=== PATIENT | male | born 1970 | race African-American/Black ===

== ENCOUNTER → 2017-11-10 | Outpatient (CLI) | payer OTHER ==
--- NOTE | 2017-11-10 15:26 | US ---
EXAMINATION TYPE: US venous doppler duplex LE LT;LOWER EXTREMITY VENOUS INSUFFICIENCY DATE OF EXAM: 11/10/2017 2:13 PM COMPARISON: US CLINICAL HISTORY: M79.605 PAIN IN LT LEG; wound care center patient for left plantar surface recurrin g ulcer; diabetic SIDE PERFORMED: Left TECHNIQUE: The lower extremity deep venous system is examined utilizing real time linear array sonog freddy with graded compression, doppler sonography and color-flow sonography. SIDE PERFORMED: left 1) Color flow is present and patency is documented in the following vessels. No DVT or SVT is noted . Common Femoral Vein Deep Femoral Vein Femoral Vein Popliteal Vein Proximal Calf Veins Greater Saph Vein Upper Small Saph Vein 2) There is venous reflux noted at the following venous levels: Left CFV, Right CFV 3) Incompetent perforators are not seen at any levels: IMPRESSION: No ultrasound evidence for acute DVT left lower extremity. Venous reflux bilateral common femoral vein level in the bilateral groins.
--- NOTE | 2017-11-16 13:33 | P.ARTDOP ---
Arterial Doppler LOWER EXTREMITY ARTERIAL DOPPLER: DATE OF SERVICE: 11/10/2017 Reason for study: Left leg pain. Doppler waveforms: Multiphasic bilaterally throughout. Pulse volume recording: []. Pressure gradients: None. Ankle-brachial indices: Greater than 1 bilaterally. Toe pressures: 117 on the right, 123 on the left Impression: Normal study.
== END | disposition home or self-care (01) ==
LOC: RADUSWWP 13:44
PROVIDERS: ATTEND Podiatrist
DX: I87.8 Other specified disorders of veins (principal); M79.605 Pain in left leg; M86.8X8 Other osteomyelitis, other site; E13.621 Other specified diabetes mellitus with foot ulcer; M79.604 Pain in right leg
CPT/HCPCS: 93922

== ENCOUNTER → 2017-11-24 | Outpatient (CLI) | payer OTHER | END | disposition home or self-care (01) | LOC: RADNMMAIN 06:56 | PROVIDERS: ATTEND Podiatrist | DX: Z53.9 Procedure and treatment not carried out, unspecified reason (principal) ==

== ENCOUNTER → 2017-11-29 | Outpatient (CLI) | payer OTHER ==
--- NOTE | 2017-11-30 15:16 | NM ---
EXAMINATION TYPE: NM WBC limited DATE OF EXAM: 11/30/2017 COMPARISON: Radiograph 11/04/2017 HISTORY: 47-year-old male with left foot plantar aspect nonhealing wound of the fifth digit for 2 mon ths TECHNIQUE: Following administration of 15.1 mCi Tc99m Ceretec. Images obtained 4 hour(s) and 24 juventino r(s) post injection. FINDINGS: Tiny focal area of activity along the plantar ball of the left foot on the side lateral view of the l eft foot. This is located superficially along the skin. No additional abnormal activity is seen IMPRESSION: Tiny focal area of superficial activity along the lateral plantar ball of the left foot. This may rel ate to the patient's known wound with possible localized soft tissue infection. No abnormal activity seen in the deeper tissues to suggest osteomyelitis.
== END | disposition home or self-care (01) ==
LOC: RADNMMAIN 07:03
PROVIDERS: ATTEND Podiatrist
DX: M86.8X8 Other osteomyelitis, other site (principal)
CPT/HCPCS: 78805; A9569

== ENCOUNTER → 2018-01-25 | Outpatient (CLI) | payer OTHER ==
[2018-01-25 10:30] LABS: Basophils % (A) 0 %; Eosinophils # (A) 0.2 k/uL (0-0.7); Eosinophils % (A) 1 %; HCT 43.2 % (39.0-53.0); HGB 13.4 gm/dL (13.0-17.5); Hypochromasia Slight; Lymphocytes # (A) 1.2 k/uL (1.0-4.8); Lymphocytes % (A) 9 %; MCH 28.4 pg (25.0-35.0); MCV 91.6 fL (80.0-100.0); Mean Platelet Volume 8.1; Monocytes # (A) 0.7 k/uL (0-1.0); Monocytes % (A) 5 %; Neutrophils # (A) 10.4 k/uL (1.3-7.7); Neutrophils % (A) 83 %; Platelet Count 205 k/uL (150-450); RBC 4.72 m/uL (4.30-5.90); RDW 12.6 % (11.5-15.5); WBC 12.6 k/uL (3.8-10.6)
[2018-01-25 10:31] LABS: ALT 30 U/L (21-72); AST 26 U/L (17-59); Alkaline Phosphatase 120 U/L (38-126); Anion Gap 13 mmol/L; Blood Urea Nitrogen 16 mg/dL (9-20); Calcium 9.7 mg/dL (8.4-10.2); Carbon Dioxide 22 mmol/L (22-30); Chloride 103 mmol/L (98-107); Glucose 242 mg/dL (74-99); Potassium 4.5 mmol/L (3.5-5.1); Sodium 138 mmol/L (137-145); Total Bilirubin 0.9 mg/dL (0.2-1.3); Total Protein 7.5 g/dL (6.3-8.2)
--- NOTE | 2018-01-25 10:51 | XR ---
EXAMINATION TYPE: XR foot complete LT DATE OF EXAM: 01/25/2018 COMPARISON: NONE HISTORY: 47-year-old male evaluate for osteomyelitis, nonhealing wound along the bottom of the left f oot near the fifth digit TECHNIQUE: 3 views FINDINGS: Hallux valgus deformity with bunion and mild first MTP joint degenerative change. There is additional soft tissue swelling along the lateral forefoot. Difficult to exclude subtle cortical erosion along the lateral plantar aspect of the fifth metatarsal head and proximal phalangeal base. Incidental bipa rtite tibial sesamoid. Suggestion of a 4 mm linear retained metallic debris along the ball of the silver t on the lateral view along the superficial tissues. IMPRESSION: The oblique view shows possible subtle cortical erosions about the lateral plantar aspect of the fift h MTP joint. Osteomyelitis difficult to exclude on the basis of this exam. Consider MRI or three-phas e bone scan as clinically indicated.
[2018-01-25 17:13] LABS: Hemoglobin A1C 9.2 % (4.0-6.0)
== END | disposition home or self-care (01) ==
LOC: RADXRMAIN 09:31
PROVIDERS: ATTEND Podiatrist
DX: M86.8X7 Other osteomyelitis, ankle and foot (principal); E13.621 Other specified diabetes mellitus with foot ulcer
CPT/HCPCS: 36415; 80053; 83036; 84134; 85025

== ENCOUNTER → 2018-02-01 | Outpatient (CLI) | payer OTHER ==
--- NOTE | 2018-02-01 16:06 | NM ---
EXAMINATION TYPE: NM bone 3 phase DATE OF EXAM: 02/01/2018 COMPARISON: 01/25/2018 left foot HISTORY: Osteomyelitis Triple phase bone scintigraphy was performed following the injection of25.0 mCi Tc 99m MDP. Immediat e images and 5.75 hours post injection images acquired. FINDINGS: Blood flow: There is increased blood flow to the left lower extremity compared to the right. This may be more focal at the distal fifth digit. Possible focal radiotracer on slightly more delayed blood f low images is in the first metatarsophalangeal joint space region. Blood pool: There is increased radiotracer accumulation on blood pool images in the region of the fir st metatarsophalangeal joint space and in the distal fifth digit region of the left foot. Static images: There is focal radiotracer accumulation at the first metatarsal phalangeal joint space . Distal fifth metatarsal or proximal phalanx fifth digit of the left foot is also present. IMPRESSION: Increased radiotracer 3 phases of bone scan at the region of the first metatarsophalangeal joint spac e and at the fifth proximal phalanx region. These areas when compared to the plain films correspond t o suspicious areas. Findings can be compatible with acute osteomyelitis these 2 regions.
== END | disposition home or self-care (01) ==
LOC: RADNMMAIN 07:33
PROVIDERS: ATTEND Podiatrist
DX: M86.9 Osteomyelitis, unspecified (principal)
CPT/HCPCS: 78315; A9503

== ENCOUNTER → 2018-02-06 | Day surgery (SDC) | payer OTHER ==
[2018-02-03 14:47] VITALS: BMI 34.2
[~2018-02-06] MED LIST: LIDOCAINE 2% INJ 20 MG/ML SQ ONE; cefTRIAXone IN SWFI 2,000 MG/20 ML SYRINGE IVP SCH
[2018-02-06 11:09] VITALS: PULSE 74; RESP 18
[2018-02-06 11:19] LABS: Glucose,Whole Blood 338 mg/dL (75-99)
[2018-02-06 11:30] LABS: Blood Urea Nitrogen 14 mg/dL (9-20)
--- NOTE | 2018-02-06 11:53 | IR ---
PICC LINE PLACEMENT: HISTORY: Infection requiring long-term antibiotic therapy PROCEDURE: Ultrasound and fluoroscopic guidance of PICC line placement. COMPLICATIONS: None ANESTHESIA: 1. 1% Lidocaine locally. FINDINGS/TECHNIQUE: The procedure was explained to the patient. The risks, complications, benefits and alternatives were discussed and any questions were answered. Informed consent was obtained. The patient was placed supine on the fluoroscopic table and prepped and draped in the usual sterile fas ion. Utilizing a 21 gauge needle and sonographic and fluoroscopic guidance, access in the vein was achieved and there is placement of a 0.018 guidewire. The vein is patent. A 4-F sheath was placed o devon the guidewire. The guidewire and dilator were removed and a 4-F. PICC line was placed through th e sheath with the tip at the level of the SVC. The sheath was removed, the catheter was flushed and sutured into position. The patient was stable throughout the procedure and remained stable upon disc harge from the Department of Radiology. The vein puncture was patent under ultrasound. A light scale image was obtained to document patency of the vein punctured. All elements of the maximal barrier technique were utilized. FLUOROSCOPY TIME: 0.1 minute, one image submitted. IMPRESSION: Successful PICC line placement under ultrasound and fluoroscopic guidance.
[2018-02-06 12:31] VITALS: BP 145/82; TEMP 98
== END ==
LOC: CATHCVL 10:31
PROVIDERS: ATTEND Radiology Diagnostic Radiology
DX: E11.621 Type 2 diabetes mellitus with foot ulcer (principal)
CPT/HCPCS: 36569; 77001; 82565; 84520; C1751; C1769; J2001; J0696; 76937

== ENCOUNTER → 2018-04-17 | Outpatient (CLI) | payer OTHER ==
[2018-04-17 14:29] LABS: Anion Gap 10 mmol/L; Blood Urea Nitrogen 14 mg/dL (9-20); Calcium 10.5 mg/dL (8.4-10.2); Carbon Dioxide 29 mmol/L (22-30); Chloride 98 mmol/L (98-107); Glucose 186 mg/dL (74-99); Potassium 4.2 mmol/L (3.5-5.1); Sodium 137 mmol/L (137-145)
== END ==
LOC: LABWHC1 13:34
PROVIDERS: ATTEND Podiatrist
DX: E13.621 Other specified diabetes mellitus with foot ulcer (principal); L97.529 Non-pressure chronic ulcer of other part of left foot with unspecified severity
CPT/HCPCS: 36415; 80048

== ENCOUNTER → 2018-08-01 | Outpatient (CLI) | payer OTHER ==
--- NOTE | 2018-08-01 11:34 | XR ---
EXAMINATION TYPE: XR foot complete LT DATE OF EXAM: 08/01/2018 COMPARISON: NONE HISTORY: Pain TECHNIQUE: Three views are submitted. FINDINGS: The osseous structures are intact. There is no acute fracture or dislocation. Arthropathy of the f irst MTP joint. Small plantar calcaneal spur. There is a radiopaque density along the plantar surface of the foot adjacent to the head of the first metatarsal suspicious for metallic foreign body. Vascu lar calcifications are seen. Hammertoe deformities are seen. IMPRESSION: 1. No acute fracture or dislocation. If symptoms persist, follow-up exam in 7 to 10 days could be ob tained. 2. There appears to be a metallic radiopaque foreign body adjacent to the MTP joint of the first digi t along the plantar surface. 3. No destructive changes. If there is concern for osteomyelitis correlate with the bone scan.
[2018-08-01 12:00] LABS: HGB 14.1 gm/dL (13.0-17.5); MCH 29.7 pg (25.0-35.0); MCHC 32.1 g/dL (31.0-37.0); MCV 92.7 fL (80.0-100.0); Mean Platelet Volume 7.6; Platelet Count 197 k/uL (150-450); RBC 4.75 m/uL (4.30-5.90); RDW 12.1 % (11.5-15.5); WBC 8.2 k/uL (3.8-10.6)
[2018-08-01 12:09] LABS: ALT 29 U/L (21-72); AST 25 U/L (17-59); Albumin 4.1 g/dL (3.5-5.0); Alkaline Phosphatase 91 U/L (38-126); Anion Gap 10 mmol/L; Blood Urea Nitrogen 17 mg/dL (9-20); Calcium 9.1 mg/dL (8.4-10.2); Carbon Dioxide 26 mmol/L (22-30); Chloride 101 mmol/L (98-107); Glucose 304 mg/dL (74-99); Potassium 4.2 mmol/L (3.5-5.1); Sodium 137 mmol/L (137-145); Total Bilirubin 0.8 mg/dL (0.2-1.3); Total Protein 7.2 g/dL (6.3-8.2)
[2018-08-01 20:28] LABS: Hemoglobin A1C 7.6 % (4.0-6.0)
== END | disposition home or self-care (01) ==
LOC: RADXRMAIN 10:53
PROVIDERS: ATTEND Podiatrist
DX: E13.621 Other specified diabetes mellitus with foot ulcer (principal)
CPT/HCPCS: 36415; 80053; 83036; 84134; 85027

== ENCOUNTER → 2019-04-03 | Outpatient (CLI) | payer MEDICARE, OTHER ==
[2019-04-03 15:52] LABS: Hemoglobin A1C 6.8 % (4.0-6.0)
[2019-04-03 16:39] LABS: African American GFR (CKD) 74.8 (60.0-200.0); Anion Gap 4.8 mmol/L (4.00-12.00); BUN/Creat Ratio 13.85 Ratio (12.00-20.00); Calcium 9.2 mg/dL (8.7-10.3); Carbon Dioxide 31.2 mmol/L (21.6-31.8); Potassium 4.1 mmol/L (3.5-5.5)
== END | disposition home or self-care (01) ==
LOC: LABWHC1 10:10
PROVIDERS: ATTEND Podiatrist
DX: L97.521 Non-pressure chronic ulcer of other part of left foot limited to breakdown of skin (principal); E08.40 Diabetes mellitus due to underlying condition with diabetic neuropathy, unspecified; Z86.31 Personal history of diabetic foot ulcer
CPT/HCPCS: 36415; 80048; 83036; 84134

== ENCOUNTER → 2019-12-25 | Outpatient (CLI) | payer MEDICARE, OTHER ==
--- NOTE | 2019-12-26 07:21 | US ---
EXAMINATION TYPE: US kidneys/renal and bladder DATE OF EXAM: 12/25/2019 COMPARISON: NONE CLINICAL HISTORY: R31.9 Hematuria, unspecified. Pt states microscopic hematuria EXAM MEASUREMENTS: Right Kidney: 13.2 x 5.5 x 6.2 cm Left Kidney: 11.2 x 6.2 x 6.2 cm Right Kidney: Appeared wnl Left Kidney: Cyst upper pole= 2.3 x 1.9 x 2.3 cm Bladder: wnl Bilateral Jets seen: No There is no evidence for hydronephrosis at this point in time. No nephrolithiasis is seen. No solid masses are identified. The urinary bladder is anechoic. IMPRESSION: Simple cyst upper pole left kidney.
== END | disposition home or self-care (01) ==
LOC: RADUSWWP 15:30
PROVIDERS: ATTEND Urology
DX: N28.1 Cyst of kidney, acquired (principal)
CPT/HCPCS: 76770

== ENCOUNTER 2021-01-27 16:25 | Emergency (ER) | payer MEDICARE, OTHER ==
[2021-01-27 19:34] VITALS: RESP 18
[2021-01-27] MEDS ORDERED: ACETAMINOPHEN TAB 325 MG TAB PO STA (20:39)
[2021-01-27] MEDS ORDERED: IBUPROFEN 600 MG TAB PO STA (20:39)
--- NOTE | 2021-01-27 20:56 | XR ---
EXAMINATION TYPE: XR chest 2V DATE OF EXAM: 01/27/2021 COMPARISON: NONE HISTORY: Fever and weakness TECHNIQUE: 2 views FINDINGS: Heart and mediastinum are normal. Lungs are clear. Diaphragm is normal. There is minor spur ring in the thoracic spine. IMPRESSION: No active cardiopulmonary disease. Normal heart.
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
[2021-01-27] MEDS ORDERED: BAMLANIVIMAB (EUA) 700 MG, ETESEVIMAB (EUA) 1,400 MG in SODIUM CHLORIDE 0.9% 50 ML IVPB ONE (21:30)
[2021-01-27 22:42] VITALS: BP 106/72; PULSE 65; TEMP 99.4
== END 2021-01-27 23:01 | disposition home or self-care (01) ==
LOC: EC 16:25
DX: U07.1 COVID-19 (principal); J44.9 Chronic obstructive pulmonary disease, unspecified; I10 Essential (primary) hypertension; E11.40 Type 2 diabetes mellitus with diabetic neuropathy, unspecified; M19.90 Unspecified osteoarthritis, unspecified site; G47.30 Sleep apnea, unspecified; F17.200 Nicotine dependence, unspecified, uncomplicated; Z79.84 Long term (current) use of oral hypoglycemic drugs; Z79.899 Other long term (current) drug therapy
CPT/HCPCS: 71046; 96365; 99284

== ENCOUNTER → 2023-07-14 | Outpatient (CLI) | payer MEDICARE, OTHER ==
--- NOTE | 2023-07-14 13:28 | CT ---
EXAMINATION TYPE: CT brain wo con DATE OF EXAM: 07/14/2023 COMPARISON: None HISTORY: balance off, rt side face numb CT DLP: 1162.[address] of the brain was performed. The ventricles, basal cisterns and sulci overlying the cerebral convexities demonstrate mild enlargem ent. There is no evidence for intracranial hemorrhage or sulcal effacement. There is decreased attenuation about the periventricular white matter and deep white matter of both c erebral hemispheres, compatible with chronic small vessel ischemia. Differential diagnosis does inclu de demyelination. No mass effects are seen.No midline shift. Osseous calvarium is intact. If symptoms persist consider MRI. IMPRESSION: 1. Age related atrophic and chronic small vessel ischemic change without acute intracranial process s een at this time.
== END | disposition home or self-care (01) ==
LOC: RADCTMAIN 13:00
PROVIDERS: ATTEND Family Medicine
DX: G51.0 Bell's palsy (principal); I67.82 Cerebral ischemia; G31.89 Other specified degenerative diseases of nervous system; R20.0 Anesthesia of skin
CPT/HCPCS: 70450

== ENCOUNTER 2024-04-20 09:29 | Observation (INO) | payer MEDICARE, OTHER ==
[2024-04-20] MEDS ORDERED: VANCOMYCIN IV PER PHARMACY 1 EACH MISC MISCELLANE PRN (10:00)
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
[2024-04-20] MEDS: PIPERACILLIN-TAZOBACTAM 3.375 GM in SODIUM CHLORIDE 0.9% 100 ML IVPB STA (10:46)
[2024-04-20] MEDS: SODIUM CHLORIDE 0.9% 500 ML 500 ML IV SCH (10:52)
[2024-04-20 10:55] LABS: Basophils # (A) 0.1 k/uL (0-0.2); Basophils % (A) 1 %; Eosinophils # (A) 0.3 k/uL (0-0.7); Eosinophils % (A) 2 %; HCT 46.4 % (39.0-53.0); HGB 14.8 gm/dL (13.0-17.5); Lymphocytes % (A) 7 %; MCH 29.4 pg (25.0-35.0); MCHC 31.9 g/dL (31.0-37.0); MCV 92.1 fL (80.0-100.0); Mean Platelet Volume 8.8; Monocytes # (A) 0.6 k/uL (0-1.0); Monocytes % (A) 5 %; Neutrophils # (A) 11.5 k/uL (1.3-7.7); Neutrophils % (A) 85 %; Platelet Count 210 k/uL (150-450); RBC 5.04 m/uL (4.30-5.90); RDW 12.4 % (11.5-15.5); WBC 13.6 k/uL (3.8-10.6)
[2024-04-20 10:59] LABS: ALT 30 U/L (4-49); AST 25 U/L (17-59); African American GFR (CKD) 88 (>60 ml/min/1.73 sqM); Albumin 4.6 g/dL (3.5-5.0); Alkaline Phosphatase 124 U/L (38-126); Anion Gap 8 mmol/L; Blood Urea Nitrogen 15 mg/dL (9-20); Calcium 9.2 mg/dL (8.4-10.2); Carbon Dioxide 29 mmol/L (22-30); Chloride 97 mmol/L (98-107); Glucose 280 mg/dL (74-99); Non-African American GFR(CKD) 76 (>60 ml/min/1.73 sqM); Sodium 134 mmol/L (137-145); Total Bilirubin 1.9 mg/dL (0.2-1.3); Total Protein 8.1 g/dL (6.3-8.2)
[2024-04-20 11:11] LABS: Partial Thromboplastin Time 26.1 sec (22.0-30.0)
--- NOTE | 2024-04-20 11:26 | XR ---
EXAMINATION TYPE: XR foot complete LT DATE OF EXAM: 04/20/2024 COMPARISON: 08/01/2018 HISTORY: Osteomyelitis TECHNIQUE: 3 view left foot FINDINGS: There is resection distal fifth metatarsal. Hallux valgus deformity is evident. No acute fr actures or dislocations are evident. Soft tissue injury over the heel pad is evident. The adjacent ca lcaneus cortex is intact. Note is made of vascular calcification. Follow up exams performed 7-10 days from acute trauma for continued pain. IMPRESSION: 1. Soft tissue injury over the heel pad. 2. No suspicious osseous changes to suggest osteomyelitis.
[2024-04-20] MEDS: VANCOMYCIN 2,000 MG in SODIUM CHLORIDE 0.9% 500 ML 500 ML IVPB ONE (11:52)
[2024-04-20 11:59] LABS: Glucose,Whole Blood 262 mg/dL (70-110)
[2024-04-20 14:04] LABS: Glucose,Whole Blood 254 mg/dL (70-110)
[2024-04-20] MEDS ORDERED: DEXTROSE 50% SYRINGE 50 ML IVP PRN ×2 (14:40)
[2024-04-20] MEDS: SODIUM CHLORIDE 0.9% 1,000 ML IV ONE (15:33)
[2024-04-20] MEDS: AMPICILLIN-SULBACTAM 3 GM in SODIUM CHLORIDE 0.9% 100 ML IVPB SCH (16:42)
[2024-04-20 17:55] LABS: Glucose,Whole Blood 390 mg/dL (70-110)
[2024-04-20] MEDS: INSULIN ASPART (NovoLOG) 100 UNIT/ML VIAL SQ SCH (18:03)
[2024-04-20 19:01] LABS: Glucose,Whole Blood 438 mg/dL (70-110)
[2024-04-20 19:49] LABS: Glucose,Whole Blood 384 mg/dL (70-110)
[2024-04-20] MEDS ORDERED: PIPERACILLIN-TAZOBACTAM 3.375 GM in SODIUM CHLORIDE 0.9% 100 ML IVPB SCH (20:00)
[2024-04-20] MEDS: CALCIUM CARBONATE 500 MG CHEWABLE PO PRN (22:44)
[2024-04-21] MEDS: VANCOMYCIN 2,000 MG in SODIUM CHLORIDE 0.9% 500 ML 500 ML IVPB SCH (00:08)
[2024-04-21 06:33] LABS: African American GFR (CKD) >90 (>60 ml/min/1.73 sqM); Non-African American GFR(CKD) 81 (>60 ml/min/1.73 sqM)
[2024-04-21 07:05] LABS: Glucose,Whole Blood 276 mg/dL (70-110)
[2024-04-21] MEDS: PANTOPRAZOLE 40 MG TABLET PO SCH (08:27)
--- NOTE | 2024-04-21 10:04 | P.CONS ---
History of Present Illness - Reason for Consult Consult date: 04/20/24 Infected heel wound Requesting physician: Stew Walden - Chief Complaint Nonhealing wound to the left heel x days - History of Present Illness Patient is a 54-year-old -[place] male with a past medical history significant diabetes mellitus hypertension osteoarthritis sleep apnea COPD apparently has been dealing with the left heel wound for the last few weeks patient had very clear how it started and the patient has been going to the wound care center patient was evaluated in the wound care this morning did have debridement of the left heel wound and the wound was noticed to be infected for the patient was advised to go to the ER patient denies high-grade fever did have some chills has been complaining of some sharp pain to the left heel area moderate intensity without any radiation and did have some drainage patient on presentation to the hospital was afebrile he was nontachycardic hypotensive or hypoxic patient did have a white count of 13.6 with a left shift kidney function has been normal bilirubin was mild elevated sodium enzymes are normal patient was started on Zosyn and vancomycin infectious disease consulted for further management of antibiotic patient did have x-ray of the left heel soft tissue injury of the left heel no bony changes osteomyelitis Review of Systems Positive point and negatives has been mentioned in the HPI, complete review of systems was performed and all other systems are negative Past Medical History Past Medical History: COPD, Diabetes Mellitus, Hypertension, Osteoarthritis (OA), Skin Disorder, Sleep Apnea/CPAP/BIPAP Additional Past Medical History / Comment(s): 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 OCC CTS SX. "CRAMPING UP" IN HANDS, FEET. HERNIATED DISC'S W/ BACK PAIN. WOUND LT FOOT - BETWEEN LT 4-5TH TOES, PREVIOUSLY HAD INFECTIONS. OCC HEARTBURN. NO TX FOR SLEEP APNEA. History of Any Multi-Drug Resistant Organisms: None Reported Past Surgical History: Orthopedic Surgery Additional Past Surgical History / Comment(s): Surgical debridement left foot. PICC LINE. partial bone removed from Left foot 10/21/18 Past Anesthesia/Blood Transfusion Reactions: No Reported Reaction Additional Past Anesthesia/Blood Transfusion Reaction / Comm: . Past Psychological History: No Psychological Hx Reported Smoking Status: Current every day smoker Past Alcohol Use History: Occasional Past Drug Use History: Marijuana - Past Family History Father History Unknown: Yes Mother Sister(s) Family Medical History: No Reported History Medications and Allergies Home Medications Medication Instructions Recorded Confirmed Type amLODIPine [Norvasc] 5 mg PO DAILY 10/20/17 04/20/24 History Gabapentin 800 mg PO DAILY 01/27/21 04/20/24 History Atorvastatin [Lipitor] 20 mg PO HS 04/20/24 04/20/24 History Dulaglutide [Trulicity] 4.5 mg SQ MO 04/20/24 04/20/24 History Famotidine [Pepcid] 20 mg PO HS PRN 04/20/24 04/20/24 History Loratadine [Claritin] 10 mg PO DAILY 04/20/24 04/20/24 History Losartan [Cozaar] 25 mg PO DAILY 04/20/24 04/20/24 History Pioglitazone [Actos] 30 mg PO DAILY 04/20/24 04/20/24 History Amoxic-Pot Clav 875-125Mg 1 tab PO Q12HR 14 Days #28 tab 04/22/24 Rx [Augmentin 875-125] Allergies Allergy/AdvReac Type Severity Reaction Status Date / Time No Known Allergies Allergy Verified 04/20/24 12:05 Physical Exam Vitals: Vital Signs Temp Pulse Resp BP Pulse Ox 04/20/24 11:18 98.4 F 85 18 148/84 04/20/24 09:34 99.2 F 82 20 129/74 99 Intake and Output 04/20/24 04/20/24 04/20/24 06:59 14:59 22:59 Other: Weight 123.377 kg GENERAL DESCRIPTION: Middle-aged male lying in bed, no distress. No tachypnea or accessory muscle of respiration use. HEENT: Shows Pallor , no scleral icterus. Oral mucous membrane is dry. No pharyngeal erythema or thrush NECK: Trachea central, no thyromegaly. LUNGS: Unlabored breathing. Clear to auscultation anteriorly. No wheeze or crackle. HEART: S1, S2, regular rate and rhythm. No loud murmur ABDOMEN: Soft, no tenderness , guarding or rigidity, no organomegaly EXTREMITIES: Left heel wound patient with no slough tissue some erythema and drainage on the dressing SKIN: No rash, no masses palpable. NEUROLOGICAL: The patient is awake, alert, oriented x3, mood and affect normal. Results CBC & Chem 7: 04/22/24 10:36 04/22/24 10:36 Labs: Abnormal Lab Results - Last 24 Hours (Table) 04/20/24 04/20/24 04/20/24 Range/Units 10:41 10:41 11:57 WBC 13.6 H (3.8-10.6) k/uL Neutrophils # 11.5 H (1.3-7.7) k/uL Sodium 134 L (137-145) mmol/L Chloride 97 L (98-107) mmol/L Glucose 280 H (74-99) mg/dL POC Glucose (mg/dL) 262 H (70-110) mg/dL Total Bilirubin 1.9 H (0.2-1.3) mg/dL 04/20/24 Range/Units 14:01 WBC (3.8-10.6) k/uL Neutrophils # (1.3-7.7) k/uL Sodium (137-145) mmol/L Chloride (98-107) mmol/L Glucose (74-99) mg/dL POC Glucose (mg/dL) 254 H (70-110) mg/dL Total Bilirubin (0.2-1.3) mg/dL Assessment and Plan (1) Diabetic foot ulcer Status: Acute Code(s): E11.621 - TYPE 2 DIABETES MELLITUS WITH FOOT ULCER SNOMED Code(s): 665907519 (2) Infected wound Status: Acute Code(s): T14.8XXA - OTHER INJURY OF UNSPECIFIED BODY REGION, INITIAL ENCOUNTER; L08.9 - LOCAL INFECTION OF THE SKIN AND SUBCUTANEOUS TISSUE, UNSP SNOMED Code(s): 73081917 (3) Left leg cellulitis Status: Acute Code(s): L03.116 - CELLULITIS OF LEFT LOWER LIMB SNOMED Code(s): 00375558245131479 Plan: 1patient with an infected left heel stage III pressure ulcer with secondary cellulitis in this patient with underlying diabetes mellitus diabetic foot ulcer we will need to cover for the polymicrobial esperanza associated with diabetic foot infection 2-blood and local culture obtained results will be followed check inflammatory markers 3-Continue the vancomycin however switch Zosyn to Unasyn to decrease risk of nephrotoxicity 4local wound care per the Wound care team We will follow on clinical condition and cultures to further adjust medication if needed Thank you for this consultation we will follow the patient along with you Dictation was produced using dragon dictation software. please excuse any grammatical, word or spelling errors. Time with Patient: Greater than 30
--- NOTE | 2024-04-21 10:47 | P.HPIM ---
History of Present Illness H&P Date: 04/20/24 Chief Complaint: Left foot wound/infection 54-year-old male, history of hypertension, hyperlipidemia, diabetes mellitus, sleep apnea, osteoarthritis, who presents to the emergency department from the wound center. Dr. Stark did an I&D on patient's heel but stated it looked infected and he wanted the patient to be admitted. Patient has some redness up the card on the left side as well. Patient has been feeling chilled lately. Patient denies taking his temperature. Patient is a diabetic. Patient is going to be admitted per Dr. Stark. Dr. Stark did cultures. X-ray of the foot completed does not reveal any osteomyelitis Blood work completed in ED reveals a WBC of 13.6, hemoglobin of 14.8 and platelet count of 210, sodium 134, potassium 4.0, BUNs/creatinine 15/1.10 and blood glucose of 280 Review of Systems REVIEW OF SYSTEMS: CONSTITUTIONAL: No fever, no malaise, no fatigue. HEENT: No recent visual problems or hearing problems. Denied any sore throat. CARDIOVASCULAR: No chest pain, orthopnea, PND, no palpitations, no syncope. PULMONARY: No shortness of breath, no cough, no hemoptysis. GASTROINTESTINAL: No diarrhea, no nausea, no vomiting, no abdominal pain. NEUROLOGICAL: No headaches, no weakness, no numbness. HEMATOLOGICAL: Denies any bleeding or petechiae. GENITOURINARY: Denies any burning micturition, frequency, or urgency. MUSCULOSKELETAL/RHEUMATOLOGICAL: Denies any joint pain, swelling, or any muscle pain. ENDOCRINE: Denies any polyuria or polydipsia. The rest of the 14-point review of systems is negative. Past Medical History Past Medical History: COPD, Diabetes Mellitus, Hypertension, Osteoarthritis (OA), Skin Disorder, Sleep Apnea/CPAP/BIPAP Additional Past Medical History / Comment(s): 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 OCC CTS SX. "CRAMPING UP" IN HANDS, FEET. HERNIATED DISC'S W/ BACK PAIN. WOUND LT FOOT - BETWEEN LT 4-5TH TOES, PREVIOUSLY HAD INFECTIONS. OCC HEARTBURN. NO TX FOR SLEEP APNEA. History of Any Multi-Drug Resistant Organisms: None Reported Past Surgical History: Orthopedic Surgery Additional Past Surgical History / Comment(s): Surgical debridement left foot. PICC LINE. partial bone removed from Left foot 10/21/18 Past Anesthesia/Blood Transfusion Reactions: No Reported Reaction Additional Past Anesthesia/Blood Transfusion Reaction / Comment(s): . Past Psychological History: No Psychological Hx Reported Smoking Status: Current every day smoker Past Alcohol Use History: Occasional Past Drug Use History: Marijuana - Past Family History Father History Unknown: Yes Mother Sister(s) Family Medical History: No Reported History Medications and Allergies Home Medications Medication Instructions Recorded Confirmed Type amLODIPine [Norvasc] 5 mg PO DAILY 10/20/17 04/20/24 History Gabapentin 800 mg PO DAILY 01/27/21 04/20/24 History Atorvastatin [Lipitor] 20 mg PO HS 04/20/24 04/20/24 History Dulaglutide [Trulicity] 4.5 mg SQ MO 04/20/24 04/20/24 History Famotidine [Pepcid] 20 mg PO HS PRN 04/20/24 04/20/24 History Loratadine [Claritin] 10 mg PO DAILY 04/20/24 04/20/24 History Losartan [Cozaar] 25 mg PO DAILY 04/20/24 04/20/24 History Pioglitazone [Actos] 30 mg PO DAILY 04/20/24 04/20/24 History Allergies Allergy/AdvReac Type Severity Reaction Status Date / Time No Known Allergies Allergy Verified 04/20/24 12:05 Physical Exam Vitals: Vital Signs Temp Pulse Resp BP Pulse Ox 04/20/24 11:18 98.4 F 85 18 148/84 04/20/24 09:34 99.2 F 82 20 129/74 99 Intake and Output 04/19/24 04/20/24 04/20/24 22:59 06:59 14:59 Other: Weight 123.377 kg - Constitutional General appearance: Present: average body habitus, cooperative, no acute distress - EENT Eyes: Present: anicteric sclerae, EOMI, PERRLA, normal appearance ENT: Present: hearing grossly normal, normal oropharynx Ears: bilateral: normal - Neck Neck: Present: normal ROM. Absent: lymphadenopathy, rigidity, thyromegaly Carotids: negative: bruit present Thyroid: bilateral: normal size, negative: enlarged, nodule - Respiratory Respiratory: bilateral: CTA, negative: rales, rhonchi, wheezing - Cardiovascular Rhythm: regular Heart sounds: normal: S1, S2 Abnormal Heart Sounds: Absent: systolic murmur, diastolic murmur - Gastrointestinal General gastrointestinal: Present: normal bowel sounds, soft. Absent: distended, organomegaly, tenderness - Genitourinary Genitourinary Comment(s): deferred - Integumentary Integumentary: Present: normal turgor. Absent: jaundiced, rash, ulcer - Neurologic Neurologic: Present: CNII-XII intact. Absent: focal deficits - Musculoskeletal Musculoskeletal: Present: gait normal, strength equal bilaterally - Psychiatric Psychiatric: Present: A&O x's 3, appropriate affect, intact judgment & insight Results CBC & Chem 7: 04/20/24 10:41 04/21/24 05:27 Labs: Abnormal Lab Results - Last 24 Hours (Table) 04/20/24 04/20/24 04/20/24 Range/Units 10:41 10:41 11:57 WBC 13.6 H (3.8-10.6) k/uL Neutrophils # 11.5 H (1.3-7.7) k/uL Sodium 134 L (137-145) mmol/L Chloride 97 L (98-107) mmol/L Glucose 280 H (74-99) mg/dL POC Glucose (mg/dL) 262 H (70-110) mg/dL Total Bilirubin 1.9 H (0.2-1.3) mg/dL Assessment and Plan Assessment: 1. Infected left heel pressure ulcer/cellulitis -Patient has underlying diabetes mellitus with diabetic foot ulcer; patient has been evaluated by ID and is placed on IV vancomycin and Unasyn; patient initially received IV Zosyn in the ED which has been switched to Unasyn by ID -- Wound care consulted 2. Hyperglycemia/diabetes mellitus; uncontrolled -Patient is currently on Actos 30 mg daily along with Trulicity which is placed on hold; we will resume home dose of Actos; monitor Accu-Cheks before every meal and at bedtime with insulin sliding scale 3. Hypertension; amlodipine 5 mg daily; Cozaar 25 mg daily 4. Hyperlipidemia; Lipitor 20 mg p.o. nightly 5. Neuropathy; likely related to diabetes mellitus; patient takes gabapentin 800 mg daily 6. Seasonal allergies; loratadine 10 mg daily DVT prophylaxis; subcu heparin CODE STATUS; full code
[2024-04-21 12:01] LABS: Glucose,Whole Blood 241 mg/dL (70-110)
[2024-04-21 12:05] VITALS: BMI 36.8
[2024-04-21] MEDS: GABAPENTIN 400 MG CAP PO SCH (12:10)
[2024-04-21] MEDS: PIOGLITAZONE 30 MG TAB PO SCH (12:10)
--- NOTE | 2024-04-21 15:26 | P.PN ---
Subjective Progress Note Date: 04/21/24 Principal diagnosis: Reason for follow-up is infected left heel wound Patient is a 54-year-old -[place] male with a past medical history significant diabetes mellitus hypertension osteoarthritis sleep apnea COPD apparently has been dealing with the left heel wound for the last few weeks patient was evaluated and wound care concerning for wound infection and cellulitis sent to the hospital the patient has been admitted x-rays were negative for any bony changes. On today's evaluation that is 04/21/2024,the patient did have a fever of 101.1 degrees following plan after midnight however the patient remains to be afebrile since then, patient is on room air not requiring supplemental oxygen and denies any shortness of breath no chest pain or cough.Patient denies having any nausea or vomiting, no abdominal pain and no diarrhea has been reported, denies any worsening pain to the left heel wound complaining of some discomfort to the left groin. Patient did have a creatinine 1.05 culture done in the outpatient setting growing Streptococcus agalactiae and gram-negative bacilli Objective - Vital Signs Vital signs: Vital Signs Temp 99.6 F 04/21/24 07:14 Pulse 82 04/21/24 08:40 Resp 16 04/21/24 08:40 BP 147/79 04/21/24 07:14 Pulse Ox 95 04/21/24 07:14 FiO2 Intake & Output 04/20/24 04/21/24 04/21/24 18:59 06:59 18:59 Intake Total 690 Output Total 1450 250 Balance -760 -250 Weight 123.377 kg 123.377 kg 123.377 kg Intake: Intake, IV Titration 150 Amount Sodium Chloride 0.9% 1, 150 000 ml @ 75 mls/hr IV . [id number] ONE Rx#:[id number] Oral 540 Output: Urine 1450 250 Other: Voiding Method Toilet Toilet Urinal Urinal # Voids 1 - Exam GENERAL DESCRIPTION: An elderly male lying in bed in no distress RESPIRATORY SYSTEM: Unlabored breathing , decreased breath sounds at bases HEART: S1 S2 regular rate and rhythm , ABDOMEN: Soft , no tenderness EXTREMITIES: Left heel wound with no significant slough. Some surrounding maceration no foul-smelling drainage - Labs CBC & Chem 7: 04/20/24 10:41 04/21/24 05:27 Labs: Abnormal Lab Results - Last 24 Hours (Table) 04/20/24 04/20/24 04/20/24 Range/Units 14:01 17:53 19:00 POC Glucose (mg/dL) 254 H 390 H 438 H (70-110) mg/dL Hemoglobin A1c (<=6.0) % 04/20/24 04/21/24 04/21/24 Range/Units 19:48 05:27 07:03 POC Glucose (mg/dL) 384 H 276 H (70-110) mg/dL Hemoglobin A1c 9.3 H (<=6.0) % 04/21/24 Range/Units 11:59 POC Glucose (mg/dL) 241 H (70-110) mg/dL Hemoglobin A1c (<=6.0) % Assessment and Plan (1) Left leg cellulitis Current Visit: Yes Status: Acute Code(s): L03.116 - CELLULITIS OF LEFT LOWER LIMB SNOMED Code(s): 25415874405507048 (2) Infected wound Current Visit: Yes Status: Acute Code(s): T14.8XXA - OTHER INJURY OF UNSPECIFIED BODY REGION, INITIAL ENCOUNTER; L08.9 - LOCAL INFECTION OF THE SKIN AND SUBCUTANEOUS TISSUE, UNSP SNOMED Code(s): 73167343 (3) Diabetic foot ulcer Current Visit: No Status: Acute Code(s): E11.621 - TYPE 2 DIABETES MELLITUS WITH FOOT ULCER SNOMED Code(s): 295817979 Plan: 1patient with an infected left heel stage III pressure ulcer with secondary cellulitis in this patient with underlying diabetes mellitus diabetic foot ulcer we will need to cover for the polymicrobial esperanza associated with diabetic foot infection 2-blood cultures currently pending and local culture growing gram-negative bacilli and strep 3-Continue the vancomycin however we will discontinue Unasyn and start the patient cefepime for better coverage of gram-negative while waiting for the ID sensitivity Dictation was produced using [employer] dictation software. please excuse any grammatical, word or spelling errors. Time with Patient: Less than 30
[2024-04-21] MEDS: HEPARIN SODIUM,PORCINE 5,000 UNIT/ML 1 ML VIAL SQ SCH (15:39)
[2024-04-21] MEDS: CEFEPIME 2 GM in SODIUM CHLORIDE 0.9% 100 ML IVPB SCH (16:37)
[2024-04-21 17:06] LABS: Glucose,Whole Blood 368 mg/dL (70-110)
[2024-04-21 20:16] LABS: Glucose,Whole Blood 411 mg/dL (70-110)
[2024-04-21] MEDS: ATORVASTATIN 20 MG TAB PO SCH (20:17)
--- NOTE | 2024-04-21 22:00 | P.PN ---
Subjective Progress Note Date: 04/21/24 54-year-old male, history of hypertension, hyperlipidemia, diabetes mellitus, sleep apnea, osteoarthritis, who presents to the emergency department from the wound center. Dr. Stark did an I&D on patient's heel but stated it looked infected and he wanted the patient to be admitted. Patient has some redness up the card on the left side as well. Patient has been feeling chilled lately. Patient denies taking his temperature. Patient is a diabetic. Patient is going to be admitted per Dr. Stark. Dr. Stark did cultures. X-ray of the foot completed does not reveal any osteomyelitis Blood work completed in ED reveals a WBC of 13.6, hemoglobin of 14.8 and platelet count of 210, sodium 134, potassium 4.0, BUNs/creatinine 15/1.10 and blood glucose of 280 Objective - Vital Signs Vital signs: Vital Signs Temp 99.6 F 04/21/24 07:14 Pulse 82 04/21/24 08:40 Resp 16 04/21/24 08:40 BP 147/79 04/21/24 07:14 Pulse Ox 95 04/21/24 07:14 FiO2 Intake & Output 04/20/24 04/21/24 04/21/24 18:59 06:59 18:59 Intake Total 690 Output Total 1450 250 Balance -760 -250 Weight 123.377 kg 123.377 kg Intake: Intake, IV Titration 150 Amount Sodium Chloride 0.9% 1, 150 000 ml @ 75 mls/hr IV . [id number] ONE Rx#:[id number] Oral 540 Output: Urine 1450 250 Other: Voiding Method Toilet Toilet Urinal Urinal # Voids 1 - Exam General appearance: alert, in no apparent distress Head exam: Present: atraumatic, normocephalic, normal inspection Eye exam: Present: normal appearance, PERRL, EOMI. Absent: scleral icterus, conjunctival injection, periorbital swelling ENT exam: Present: normal exam, mucous membranes moist Neck exam: Present: normal inspection. Absent: tenderness, meningismus, lympha denopathy Respiratory exam: Present: normal lung sounds bilaterally. Absent: respiratory distress, wheezes, rales, rhonchi, stridor Cardiovascular Exam: Present: regular rate, normal rhythm, normal heart sounds. Absent: systolic murmur, diastolic murmur, rubs, gallop, clicks GI/Abdominal exam: Present: soft, normal bowel sounds. Absent: distended, tenderness, guarding, rebound, rigid Back exam: Present: normal inspection. Absent: CVA tenderness (R), CVA tenderness (L) Neurological exam: Present: alert Psychiatric exam: Present: normal affect, normal mood Skin exam: Present: warm, dry, intact, normal color. Absent: rash - Labs CBC & Chem 7: 04/20/24 10:41 04/21/24 05:27 Labs: Abnormal Lab Results - Last 24 Hours (Table) 04/20/24 04/20/24 04/20/24 Range/Units 10:41 10:41 11:57 WBC 13.6 H (3.8-10.6) k/uL Neutrophils # 11.5 H (1.3-7.7) k/uL Sodium 134 L (137-145) mmol/L Chloride 97 L (98-107) mmol/L Glucose 280 H (74-99) mg/dL POC Glucose (mg/dL) 262 H (70-110) mg/dL Hemoglobin A1c (<=6.0) % Total Bilirubin 1.9 H (0.2-1.3) mg/dL 04/20/24 04/20/24 04/20/24 Range/Units 14:01 17:53 19:00 WBC (3.8-10.6) k/uL Neutrophils # (1.3-7.7) k/uL Sodium (137-145) mmol/L Chloride (98-107) mmol/L Glucose (74-99) mg/dL POC Glucose (mg/dL) 254 H 390 H 438 H (70-110) mg/dL Hemoglobin A1c (<=6.0) % Total Bilirubin (0.2-1.3) mg/dL 04/20/24 04/21/24 04/21/24 Range/Units 19:48 05:27 07:03 WBC (3.8-10.6) k/uL Neutrophils # (1.3-7.7) k/uL Sodium (137-145) mmol/L Chloride (98-107) mmol/L Glucose (74-99) mg/dL POC Glucose (mg/dL) 384 H 276 H (70-110) mg/dL Hemoglobin A1c 9.3 H (<=6.0) % Total Bilirubin (0.2-1.3) mg/dL Assessment and Plan Assessment: 1. Infected left heel pressure ulcer/cellulitis -Patient has underlying diabetes mellitus with diabetic foot ulcer; patient has been evaluated by ID and is placed on IV vancomycin and Unasyn; patient initially received IV Zosyn in the ED which has been switched to Unasyn by ID -- Wound care consulted 2. Hyperglycemia/diabetes mellitus; uncontrolled -Patient is currently on Actos 30 mg daily along with Trulicity which is placed on hold; we will resume home dose of Actos; monitor Accu-Cheks before every meal and at bedtime with insulin sliding scale 3. Hypertension; amlodipine 5 mg daily; Cozaar 25 mg daily 4. Hyperlipidemia; Lipitor 20 mg p.o. nightly 5. Neuropathy; likely related to diabetes mellitus; patient takes gabapentin 800 mg daily 6. Seasonal allergies; loratadine 10 mg daily DVT prophylaxis; subcu heparin CODE STATUS; full code
[2024-04-22 07:05] LABS: Glucose,Whole Blood 337 mg/dL (70-110)
[2024-04-22 08:14] VITALS: RESP 20
[2024-04-22] MEDS: LOSARTAN 25 MG TAB PO SCH (08:57)
[2024-04-22] MEDS: amLODIPine 5 MG TAB PO SCH (08:57)
[2024-04-22] MEDS: LORATADINE 10 MG TAB PO SCH (08:57)
[2024-04-22 11:08] LABS: African American GFR (CKD) >90 (>60 ml/min/1.73 sqM); Non-African American GFR(CKD) 85 (>60 ml/min/1.73 sqM)
[2024-04-22] MEDS: VANCOMYCIN TROUGH DUE 1 EACH MISC MISCELLANE ONE (11:34)
[2024-04-22 12:04] LABS: Glucose,Whole Blood 270 mg/dL (70-110)
[2024-04-22 12:35] LABS: Basophils # (A) 0.1 k/uL (0-0.2); Basophils % (A) 1 %; Eosinophils # (A) 0.3 k/uL (0-0.7); Eosinophils % (A) 4 %; HCT 39.5 % (39.0-53.0); HGB 12.7 gm/dL (13.0-17.5); Lymphocytes # (A) 1.3 k/uL (1.0-4.8); Lymphocytes % (A) 16 %; MCH 29.5 pg (25.0-35.0); MCHC 32.2 g/dL (31.0-37.0); MCV 91.6 fL (80.0-100.0); Mean Platelet Volume 9.6; Monocytes # (A) 0.7 k/uL (0-1.0); Monocytes % (A) 8 %; Neutrophils # (A) 5.7 k/uL (1.3-7.7); Neutrophils % (A) 68 %; Platelet Count 184 k/uL (150-450); RBC 4.31 m/uL (4.30-5.90); RDW 12.3 % (11.5-15.5); WBC 8.4 k/uL (3.8-10.6)
[2024-04-22 12:43] LABS: Anion Gap 9 mmol/L; Blood Urea Nitrogen 16 mg/dL (9-20); C Reactive Protein 4.3 mg/dL (<1.0); Calcium 9.3 mg/dL (8.4-10.2); Carbon Dioxide 23 mmol/L (22-30); Chloride 100 mmol/L (98-107); Glucose 292 mg/dL (74-99); Potassium 3.5 mmol/L (3.5-5.1); Sodium 132 mmol/L (137-145)
[2024-04-22 14:18] VITALS: BP 135/94; PULSE 72; TEMP 97.7
--- NOTE | 2024-04-22 17:13 | P.PN ---
Subjective Progress Note Date: 04/22/24 Principal diagnosis: Reason for follow-up is infected left heel wound Patient is a 54-year-old -[place] male with a past medical history significant diabetes mellitus hypertension osteoarthritis sleep apnea COPD apparently has been dealing with the left heel wound for the last few weeks patient was evaluated and wound care concerning for wound infection and cellulitis sent to the hospital the patient has been admitted x-rays were negative for any bony changes. On today's evaluation that is 04/21/2024, the patient continues to be afebrile, the patient is on room air and breathing comfortably, the Pt denies having any chest pain or cough, the patient denies having any abdominal pain no vomiting or any diarrhea , patient denies any worsening pain pain to the left heel wound area. Patient white count is 8.4 creatinine is 1.01 local culture done at the wound care has been finalized with strep Proteus and bacteroids Objective - Vital Signs Vital signs: Vital Signs Temp 98.5 F 04/22/24 07:05 Pulse 75 04/22/24 08:40 Resp 20 04/22/24 08:40 BP 135/85 04/22/24 07:05 Pulse Ox 97 04/22/24 07:05 FiO2 Intake & Output 04/21/24 04/22/24 04/22/24 18:59 06:59 18:59 Intake Total 240 540 Output Total 503 Balance -263 540 Weight 123.377 kg Intake: Oral 240 540 Output: Urine 503 Other: Voiding Method Toilet Toilet Toilet Urinal Urinal Urinal # Voids 3 - Exam GENERAL DESCRIPTION: An elderly male lying in bed in no distress RESPIRATORY SYSTEM: Unlabored breathing , decreased breath sounds at bases HEART: S1 S2 regular rate and rhythm , ABDOMEN: Soft , no tenderness EXTREMITIES: Left heel wound currently dressed - Labs CBC & Chem 7: 04/22/24 10:36 04/22/24 10:36 Labs: Abnormal Lab Results - Last 24 Hours (Table) 04/21/24 04/21/24 04/22/24 Range/Units 17:05 20:09 07:03 POC Glucose (mg/dL) 368 H 411 H 337 H (70-110) mg/dL 04/22/24 Range/Units 12:03 POC Glucose (mg/dL) 270 H (70-110) mg/dL Microbiology - Last 24 Hours (Table) 04/20/24 10:41 Blood Culture - Preliminary Blood 04/20/24 10:41 Blood Culture - Preliminary Blood Assessment and Plan (1) Left leg cellulitis Status: Acute Code(s): L03.116 - CELLULITIS OF LEFT LOWER LIMB SNOMED Code(s): 76751668027470653 (2) Infected wound Status: Acute Code(s): T14.8XXA - OTHER INJURY OF UNSPECIFIED BODY REGION, INITIAL ENCOUNTER; L08.9 - LOCAL INFECTION OF THE SKIN AND SUBCUTANEOUS TISSUE, UNSP SNOMED Code(s): 10976410 (3) Diabetic foot ulcer Status: Acute Code(s): E11.621 - TYPE 2 DIABETES MELLITUS WITH FOOT ULCER SNOMED Code(s): 619619061 Plan: 1patient with an infected left heel stage III pressure ulcer with secondary cellulitis in this patient with underlying diabetes mellitus diabetic foot ulcer we will need to cover for the polymicrobial esperanza associated with diabetic foot infection 2-blood cultures has been negative local culture currently growing strep Proteus and anaerobes 3-patient has been advised to stay in the hospital for another 24 hours for IV antibiotic therapy however the patient has been insisting on going home we will recommend Augmentin 875 twice daily for 2 weeks and close outpatient follow-up Dictation was produced using [email or web address] dictation software. please excuse any grammatical, word or spelling errors. Time with Patient: Less than 30
[2024-04-23] MEDS ORDERED: VANCOMYCIN 1,750 MG in SODIUM CHLORIDE 0.9% 500 ML 500 ML IVPB SCH
--- NOTE | 2024-04-23 14:30 | P.PN ---
Subjective Progress Note Date: 04/22/24 54-year-old male, history of hypertension, hyperlipidemia, diabetes mellitus, sleep apnea, osteoarthritis, who presents to the emergency department from the wound center. Dr. Stark did an I&D on patient's heel but stated it looked infected and he wanted the patient to be admitted. Patient has some redness up the card on the left side as well. Patient has been feeling chilled lately. Patient denies taking his temperature. Patient is a diabetic. Patient is going to be admitted per Dr. Stark. Dr. Stark did cultures. X-ray of the foot completed does not reveal any osteomyelitis Blood work completed in ED reveals a WBC of 13.6, hemoglobin of 14.8 and platelet count of 210, sodium 134, potassium 4.0, BUNs/creatinine 15/1.10 and blood glucose of 280 24-hour interval change 04/22/2024 Patient is seen and evaluated in room at bedside; patient is all dressed up and indicates that he was told by ID that he could be switched to oral medication and can be discharged home Vital signs are reviewed and remained stable Blood work is reviewed and reveals a WBC of 8.4, hemoglobin of 12.7 and platelet count of 184, sodium 132, potassium 3.5, BUNs/creatinine of 16/1.01, CRP of 4.3 procalcitonin 0.19 --I did discuss culture results showing gram-negative organisms with ID swit jackson his Unasyn to cefepime -- Patient is insistent about discharge; we will discuss with ID and discharge if cleared Objective - Vital Signs Vital signs: Vital Signs Temp 98.5 F 04/22/24 07:05 Pulse 75 04/22/24 08:40 Resp 20 04/22/24 08:40 BP 135/85 04/22/24 07:05 Pulse Ox 97 04/22/24 07:05 FiO2 Intake & Output 04/21/24 04/22/24 04/22/24 18:59 06:59 18:59 Intake Total 240 540 Output Total 503 Balance -263 540 Weight 123.377 kg Intake: Oral 240 540 Output: Urine 503 Other: Voiding Method Toilet Toilet Toilet Urinal Urinal Urinal # Voids 3 - Exam General appearance: alert, in no apparent distress Head exam: Present: atraumatic, normocephalic, normal inspection Eye exam: Present: normal appearance, PERRL, EOMI. Absent: scleral icterus, conjunctival injection, periorbital swelling ENT exam: Present: normal exam, mucous membranes moist Neck exam: Present: normal inspection. Absent: tenderness, meningismus, lymphadenopathy Respiratory exam: Present: normal lung sounds bilaterally. Absent: respiratory distress, wheezes, rales, rhonchi, stridor Cardiovascular Exam: Present: regular rate, normal rhythm, normal heart sounds. Absent: systolic murmur, diastolic murmur, rubs, gallop, clicks GI/Abdominal exam: Present: soft, normal bowel sounds. Absent: distended, tenderness, guarding, rebound, rigid Back exam: Present: normal inspection. Absent: CVA tenderness (R), CVA tenderness (L) Neurological exam: Present: alert Psychiatric exam: Present: normal affect, normal mood Skin exam: Present: warm, dry, intact, normal color. Absent: rash - Labs CBC & Chem 7: 04/22/24 10:36 04/22/24 10:36 Labs: Abnormal Lab Results - Last 24 Hours (Table) 04/21/24 04/21/24 04/21/24 Range/Units 11:59 17:05 20:09 POC Glucose (mg/dL) 241 H 368 H 411 H (70-110) mg/dL 04/22/24 Range/Units 07:03 POC Glucose (mg/dL) 337 H (70-110) mg/dL Microbiology - Last 24 Hours (Table) 04/20/24 10:41 Blood Culture - Preliminary Blood 04/20/24 10:41 Blood Culture - Preliminary Blood Assessment and Plan Assessment: 1. Infected left heel pressure ulcer/cellulitis -Patient has underlying diabetes mellitus with diabetic foot ulcer; patient has been evaluated by ID and is placed on IV vancomycin and Unasyn; patient initially received IV Zosyn in the ED which has been switched to Unasyn by ID -- Wound care consulted 2. Hyperglycemia/diabetes mellitus; uncontrolled -Patient is currently on Actos 30 mg daily along with Trulicity which is placed on hold; we will resume home dose of Actos; monitor Accu-Cheks before every meal and at bedtime with insulin sliding scale 3. Hypertension; amlodipine 5 mg daily; Cozaar 25 mg daily 4. Hyperlipidemia; Lipitor 20 mg p.o. nightly 5. Neuropathy; likely related to diabetes mellitus; patient takes gabapentin 800 mg daily 6. Seasonal allergies; loratadine 10 mg daily DVT prophylaxis; subcu heparin CODE STATUS; full code
== END 2024-04-22 15:06 | disposition left against medical advice (07) ==
LOC: EC 09:29 → 6NMEDSUR 13:11 → 5NMEDONC 18:00
PROVIDERS: ADMIT Internal Medicine; ATTEND Internal Medicine
DX: L03.116 Cellulitis of left lower limb (principal); L89.629 Pressure ulcer of left heel, unspecified stage; L97.509 Non-pressure chronic ulcer of other part of unspecified foot with unspecified severity; M86.9 Osteomyelitis, unspecified; Z79.899 Other long term (current) drug therapy; Z79.84 Long term (current) use of oral hypoglycemic drugs; E78.5 Hyperlipidemia, unspecified; F10.20 Alcohol dependence, uncomplicated; I10 Essential (primary) hypertension; I25.10 Atherosclerotic heart disease of native coronary artery without angina pectoris
CPT/HCPCS: 96361 ×2; 96365; 96366 ×3; 96367; 96372 ×2; 99285; 36415; 93005; 80053; 80048; 82565; 83605; 85025 ×2; 80202; 85610; 85730; 86140; 87040; 83036; 84145; 73630; G0378 ×4; J2543; J3370 ×3; J1644 ×2; J0692 ×2; J0295 ×2

== ENCOUNTER 2024-04-23 12:13 | Emergency (ER) | payer MEDICARE, OTHER ==
[2024-04-23 12:29] VITALS: TEMP 97.5
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
[2024-04-23 14:00] VITALS: BP 135/89; PULSE 72; RESP 16
== END 2024-04-23 14:00 | disposition home or self-care (01) ==
LOC: EC 12:13
DX: S91.302A Unspecified open wound, left foot, initial encounter (principal); E11.40 Type 2 diabetes mellitus with diabetic neuropathy, unspecified; I10 Essential (primary) hypertension; F17.200 Nicotine dependence, unspecified, uncomplicated; Z79.85 Long-term (current) use of injectable non-insulin antidiabetic drugs; Z79.84 Long term (current) use of oral hypoglycemic drugs; Z79.899 Other long term (current) drug therapy; X58.XXXA Exposure to other specified factors, initial encounter
CPT/HCPCS: 99283

== ENCOUNTER → 2024-08-15 | Outpatient (CLI) | payer MEDICARE ==
[2024-08-15 18:26] LABS: Urine Creatinine 67.4 mg/dL (39.0-259.0)
[2024-08-15 18:39] LABS: ALT 29 U/L (10-49); AST 22 U/L (14-35); Albumin 4.3 g/dL (3.8-4.9); Albumin/Globulin Ratio 1.65 Ratio (1.60-3.17); Alkaline Phosphatase 122 U/L (41-126); Blood Urea Nitrogen 8.6 mg/dL (9.0-27.0); Carbon Dioxide 26.7 mmol/L (21.6-31.8); Chloride 94 mmol/L (96-109); Chol/HDL Ratio 4.73 Ratio; Globulin 2.6 g/dL (1.6-3.3); Glucose 358 mg/dL (70-110); LDL Cholesterol,Calculated 155.8 mg/dL (0.0-131.0); Potassium 4.1 mmol/L (3.5-5.5); Sodium 133 mmol/L (135-145); Total Bilirubin 0.6 mg/dL (0.3-1.2); Total Protein 6.9 g/dL (6.2-8.2)
== END | disposition home or self-care (01) ==
LOC: LABWHC1 14:18
PROVIDERS: ATTEND Internal Medicine Endocrinology, Diabetes & Metabolism
DX: E11.65 Type 2 diabetes mellitus with hyperglycemia (principal)
CPT/HCPCS: 36415; 80053; 80061; 82043; 82570; 83036; 84443

== ENCOUNTER → 2025-05-29 | Outpatient (CLI) | payer MEDICARE, OTHER ==
--- NOTE | 2025-05-29 13:04 | XR ---
EXAMINATION TYPE: XR shoulder complete BILAT DATE OF EXAM: 05/29/2025 12:56 PM COMPARISON: None. CLINICAL INDICATION: Male, 55 years old with history of DJD, pain TECHNIQUE: XR shoulder complete BILAT views were obtained FINDINGS: There is no acute fracture/dislocation evident. The acromioclavicular and glenohumeral joint spaces appear within normal limits. The visualized ribs are intact and unremarkable. IMPRESSION: There is no acute fracture or dislocation. [facility], , 05/29/2025 1:02 PM
--- NOTE | 2025-05-29 13:06 | XR ---
EXAMINATION TYPE: XR spine complete AP and Lat DATE OF EXAM: 05/29/2025 12:56 PM COMPARISON: None. CLINICAL INDICATION: Male, 55 years old with history of DJD, TECHNIQUE: Three views of the cervical spine are submitted. FINDINGS: The cervical spine is visualized in its entirety from C1 thru the top of T1 level. It is s atisfactory in alignment without evidence of acute fracture or dislocation. The pre-vertebral soft t issue appears within normal limits. The C1-C2 articulation is unremarkable on the open mouth view. Moderate degenerative disc space narrowing and spondylosis C5-6 and C6-7. IMPRESSION: No acute fracture or dislocation is seen in the cervical spine. THORACIC SPINE 2 VIEWS. TECHNIQUE: Frontal, lateral, and swimmer's view of thoracic spine are obtained. COMPARISON: None. FINDINGS: Thoracic spine show satisfactory alignment without evidence of acute fracture or dislocatio n. Vertebral body heights are preserved. Mild scattered degenerative disc space narrowing throughout the lumbar spine. Visualized ribs are unremarkable. IMPRESSION: No acute fracture or dislocation is seen in the thoracic spine. LUMBAR SPINE X-RAY: TECHNIQUE: Three views of the lumbar spine are submitted. COMPARISON: None. FINDINGS: There are 5 lumbar type vertebral bodies identified. The lumbar spine shows satisfactory alignment without evidence of acute fracture or dislocation. Vertebral body heights are within normal limits. Severe degenerative disc disease with vacuum disc at L3-4 and L5-S1. Mild facet joint arthro nicole. The overlying soft tissue appears unremarkable. IMPRESSION: No acute fracture or dislocation is seen in the lumbar spine. [facility], , 05/29/2025 1:04 PM
== END | disposition home or self-care (01) ==
LOC: RADXRMAIN 12:04
PROVIDERS: ATTEND Chiropractor
DX: M25.511 Pain in right shoulder (principal)
CPT/HCPCS: 72082